=== PATIENT | female | born 1950 | race Caucasian/White ===

== ENCOUNTER → 2020-03-18 09:29 | Outpatient (BNVA) | payer MEDICARE, OTHER, SELFPAY | PROVIDERS: Family Provider Family Medicine; PCP Family Medicine; Visit Provider Family Medicine | DX: D69.9 Hemorrhagic condition, unspecified (principal); Z79.01 Long term (current) use of anticoagulants | CPT/HCPCS: 85610 ==

== ENCOUNTER → 2020-04-16 13:50 | Outpatient (BNVA) | payer MEDICARE, OTHER, SELFPAY | PROVIDERS: Family Provider Family Medicine; PCP Family Medicine; Visit Provider Nurse Practitioner Family | DX: R53.83 Other fatigue (principal); Z86.39 Personal history of other endocrine, nutritional and metabolic disease; E87.1 Hypo-osmolality and hyponatremia; G25.81 Restless legs syndrome | CPT/HCPCS: 80053; 85025 ==

== ENCOUNTER → 2020-05-28 09:47 | Outpatient (BNVA) | payer MEDICARE, OTHER, SELFPAY | PROVIDERS: Family Provider Family Medicine; PCP Family Medicine; Visit Provider Nurse Practitioner Family | DX: G45.9 Transient cerebral ischemic attack, unspecified (principal); R53.83 Other fatigue; E87.1 Hypo-osmolality and hyponatremia | CPT/HCPCS: 80053; 80061; 85025 ==

== ENCOUNTER → 2020-09-22 09:00 | Outpatient (BNVA) | payer MEDICARE, OTHER, SELFPAY | PROVIDERS: Family Provider Family Medicine; PCP Family Medicine; Visit Provider Family Medicine | DX: N18.30 Chronic kidney disease, stage 3 unspecified (principal); R31.29 Other microscopic hematuria | CPT/HCPCS: 80048; 81003; 82310; 83970; 84100; 84550 ==

== ENCOUNTER 2021-08-11 08:33 | Outpatient (CLI) | payer MEDICARE, SELFPAY ==
[2021-08-11 09:03] VITALS: BMI 24.7
--- NOTE | 2021-08-11 09:04 | ECG_ITS ---
[facility] Test Date: 2021-08-11 Pat Name: Roberta Simmons Department: Room: Gender: Female [employer]: : 1950 Requested By: Dennis Peterson Order Number: [id number] Gillian MD: Dennis Peterson M.D. Interpretive Statements NAME OF STUDY: EXERCISE SESTAMIBI STRESS TEST INDICATION: Sp/sob, PROCEDURE: The baseline electrocardiogram showed normal sinus rhythm with normal ST-Ts. At the baseline, the patient's blood pressure was 131/69 mm Hg with a heart rate of 75. The patient exercised for 6 minutes and 45 seconds on a standard [facility] protocol. Patient attained a maximum heart rate of 141 beats per minute 95% of the maximum predicted heart rate) with a blood pressure at the peak exercise of 184/89 mm Hg. The EKG at the peak exercise revealed some nonspecific ST-T changes.. Patient did not have any chest pain or any significant arrhythmis with the exercise Sestamibi was injected 1 minute prior to the peak exercise During the recovery phase, there were no new changes. Blood pressure at the end of the recovery phase was 161/78 mm Hg with a heart rate of 90 per minute. CONCLUSION: 1. No significant EKG changes with the treadmill exercise 2. No exercise-induced chest pain or cardiac arrhythmia. Hypertensive response to exercise 3. Fair exercise tolerance, attained a maximum of 10.2 METs 4. Sestamibi/Sestamibi perfusion results pending; see separate report. Electronically Signed On 08-18-2021 8:20:27 CDT by Dennis Peterson M.D. [id number]
--- NOTE | 2021-08-11 09:05 | NMCV_ITS ---
NM ayah perf SPECT r/s* [id number] Roberta Simmons Age: 71 Gender: F : 1950 Exam Date: 08/11/2021 10:03 Ordering Phys: Dennis Peterson MD ([email or web address]) Technologist: TREASURE Lopes Exam Location: [facility] Indications: CHEST PAIN STRESS TEST Please see separate stress test report in [facility] for full findings IMAGE PROTOCOL Rest/Stress 1 Exercise Day Radiopharmaceutical Dose (mCi) Administration Site Administered by Rest: Tc-99m 10.8 IV TREASURE Lopes Sestamibi Stress:Tc-99m 32.5 IV TREASURE Lopes Sestamibi Rest: 11-Aug-2021 60 Discovery 630 Stress: 11-Aug-2021 15 Discovery 630 Radiopharmaceutical was injected at 89 % maximum heart rate. Images obtained in supine and prone position. SPECT RESULTS Technical Quality: Excellent Raw Data Analysis: Normal Image Corrections: No attenuation or motion correction applied Summed Stress Score: 0 Summed Rest Score: 0 Summed Difference Score: 0 PERFUSION FINDINGS Fairly uniform myocardial tracer uptake with no significant perfusion abnormalities FUNCTIONAL RESULTS (calculated via Gated SPECT) Stress Image LV EF (%): 97 Stress EDV (mL):30 TID: 0.58 Stress ESV (mL):1 FUNCTIONAL FINDINGS: Segmental wall motion analysis revealing no gross wall motion abnormalities IMPRESSIONS 1. Unremarkable myocardial perfusion imaging 2. Normal LV ejection fraction-97% possibly an overestimation because of the extremely low end-systolic volume measurement 3. No gross wall motion normalities. 4. Normal LV volume Very low probability for coronary artery disease, based on the above findings Dr Dennis Peterson MD FACC (Electronically Signed) Final Date: 11 August 2021 23:42 S
[2021-08-11 11:45] VITALS: BP 164/78; PULSE 91
--- NOTE | 2021-08-11 13:30 | USCV_ITS ---
Roberta Simmons Age: 71 Gender: F : 1950 Exam Date: 08/11/2021 12:33 Ordering Phys: Dennis Peterson MD ([email or web address]) Technologist: Stefany Ferreira Exam Location: [facility] [place] Indication: DYSNEA BP: 112 / 70 HR: 69 Rhythm: Sinus Technical Quality: Adequate MEASUREMENTS (Male / Female) Normal Values 2D ECHO LV Diastolic Diameter PLAX 4.3 cm 4.2 - 5.9 / 3.9 - 5.3 cm LV Systolic Diameter PLAX 2.7 cm IVS Diastolic Thickness 1.0 cm 0.6 - 1.0 / 0.6 - 0.9 cm IVS Systolic Thickness 1.7 cm LVPW Diastolic Thickness 1.1 cm 0.6 - 1.0 / 0.6 - 0.9 cm LVPW Systolic Thickness 1.7 cm LVOT Diameter 2.0 cm LV Ejection Fraction 2D Teich 68.0 % LV Ejection Fraction MOD 2C 78.9 % LV Ejection Fraction 2C AL 78.6 % LA Diameter 1.7 cm LA Width 2.4 cm LA Height 3.5 cm RA Width 3.1 cm RA Height 3.1 cm Aorta at Sinotubular Diameter 2.0 cm DOPPLER AV Peak Velocity 107.0 cm/s LVOT Peak Velocity 107.0 cm/s AV Area Cont Eq vti 3.3 cm squared AV Area Cont Eq pk 3.1 cm squared MV Peak Velocity 88.0 cm/s MV Area PHT 3.3 cm squared Mitral E to A Ratio 0.7 MV E' Velocity 35.5 cm/s Mitral E to MV E' Ratio 9.6 Mitral E to LV E' Lateral Ratio 10.5 Mitral E to LV E' Septal Ratio 8.8 TR Peak Velocity 187.9 cm/s TR Peak Gradient 14.1 mmHg TR Mean Velocity 152.2 cm/s TR Mean Gradient 9.9 mmHg TR Velocity Time Integral 40.0 cm TV Peak E Velocity 38.0 cm/s Right Atrial Pressure 3.0 mmHg Pulmonary Artery Systolic Pressu 17.1 mmHg PV Peak Velocity 68.0 cm/s RV Acceleration Time 0.1 s RV Ejection Time 0.3 s RV AcT/ET 0.4 FINDINGS Left Ventricle Normal left ventricular size and systolic function, EF 72 %. No regional wall motion abnormalities. Grade I/IV diastolic dysfunction (abnormal relaxation filling pattern), normal to mildly elevated filling pressures. Right Ventricle The right ventricle is normal in size and function. Right Atrium The right atrium is normal in size. Left Atrium The left atrium is normal in size. Mitral Valve No gross abnormalities noted Aortic Valve Thickened aortic valve. Tricuspid Valve Trace tricuspid valve regurgitation. Pulmonic Valve No gross abnormalities noted Pericardium Normal pericardium without effusion. Aorta Normal ascending aorta dimension. CONCLUSIONS Normal left ventricular size and systolic function, EF 72 %. No regional wall motion abnormalities. Grade I/IV diastolic dysfunction (abnormal relaxation filling pattern), normal to mildly elevated filling pressures. Thickened aortic valve. Trace of tricuspid valve regurgitation. There is no pericardial effusion. There are no intracardiac masses. No previous study is available for comparison. Dr Dennis Peterson MD FACC (Electronically Signed) Final Date: 12 August 2021 00:08 S
== END 2021-08-11 08:34 | disposition home or self-care (01) ==
LOC: CDL 08:40
PROVIDERS: PCP Family Medicine; Visit Provider Internal Medicine Cardiovascular Disease
DX: I08.2 Rheumatic disorders of both aortic and tricuspid valves (principal); R07.9 Chest pain, unspecified; R06.00 Dyspnea, unspecified
CPT/HCPCS: 78452; 93017; 93306; A9500

== ENCOUNTER → 2021-08-17 15:11 | Outpatient (BNVA) | payer MEDICARE, SELFPAY | PROVIDERS: PCP Family Medicine; Visit Provider Nurse Practitioner Family | DX: G45.9 Transient cerebral ischemic attack, unspecified (principal); D69.9 Hemorrhagic condition, unspecified; Z79.01 Long term (current) use of anticoagulants | CPT/HCPCS: 85610 ==

== ENCOUNTER → 2021-10-18 14:58 | Outpatient (BNVA) | payer MEDICARE, SELFPAY | PROVIDERS: PCP Family Medicine; Visit Provider Nurse Practitioner Family | DX: Z79.01 Long term (current) use of anticoagulants (principal) | CPT/HCPCS: 82784; 83516; 85610 ==

== ENCOUNTER → 2021-10-24 09:03 | Outpatient (BNVA) | payer MEDICARE, SELFPAY | PROVIDERS: PCP Family Medicine; Visit Provider Family Medicine | DX: N18.31 Chronic kidney disease, stage 3a (principal); E78.5 Hyperlipidemia, unspecified; Z79.01 Long term (current) use of anticoagulants | CPT/HCPCS: 80053; 80061; 81003; 82306; 82310; 83970; 84100; 84550; 85610 ==

== ENCOUNTER → 2021-11-07 08:53 | Outpatient (BNVA) | payer BC, SELFPAY | PROVIDERS: PCP Family Medicine; Visit Provider Nurse Practitioner Family | DX: R19.7 Diarrhea, unspecified (principal); Z83.79 Family history of other diseases of the digestive system | CPT/HCPCS: 82784; 83516 ==

== ENCOUNTER → 2022-02-01 10:43 | Outpatient (BNVA) | payer BC, SELFPAY | PROVIDERS: PCP Family Medicine; Visit Provider Nurse Practitioner Family | DX: J06.9 Acute upper respiratory infection, unspecified (principal); Z79.01 Long term (current) use of anticoagulants; Z68.25 Body mass index [BMI] 25.0-25.9, adult | CPT/HCPCS: 85610 ==

== ENCOUNTER → 2022-02-21 11:02 | Outpatient (BNVA) | payer BC, SELFPAY | PROVIDERS: PCP Family Medicine; Visit Provider Nurse Practitioner Family | DX: G45.9 Transient cerebral ischemic attack, unspecified (principal) | CPT/HCPCS: 85610 ==

== ENCOUNTER → 2022-05-23 11:47 | Outpatient (BNVA) | payer BC, SELFPAY | PROVIDERS: PCP Family Medicine; Visit Provider Nurse Practitioner Family | DX: Z79.01 Long term (current) use of anticoagulants (principal); Z86.39 Personal history of other endocrine, nutritional and metabolic disease | CPT/HCPCS: 80053; 85610 ==

== ENCOUNTER → 2022-06-20 09:18 | Outpatient (BNVA) | payer BC, SELFPAY | PROVIDERS: PCP Family Medicine; Visit Provider Nurse Practitioner Family | DX: E78.5 Hyperlipidemia, unspecified (principal); Z79.01 Long term (current) use of anticoagulants | CPT/HCPCS: 80053; 80061; 84443; 85610 ==

== ENCOUNTER → 2022-06-27 09:30 | Outpatient (BNVA) | payer BC, SELFPAY | PROVIDERS: PCP Family Medicine; Visit Provider Family Medicine | DX: R30.0 Dysuria (principal); N39.0 Urinary tract infection, site not specified | CPT/HCPCS: 81003 ==

== ENCOUNTER → 2022-09-27 09:10 | Outpatient (BNVA) | payer MEDICARE, SELFPAY | PROVIDERS: PCP Family Medicine; Visit Provider Nurse Practitioner Family | DX: I48.91 Unspecified atrial fibrillation (principal); M19.90 Unspecified osteoarthritis, unspecified site; Z68.25 Body mass index [BMI] 25.0-25.9, adult | CPT/HCPCS: 85610 ==

== ENCOUNTER → 2022-10-31 16:05 | Outpatient (BNVA) | payer MEDICARE, SELFPAY | PROVIDERS: PCP Family Medicine; Visit Provider Internal Medicine | DX: N02.9 Recurrent and persistent hematuria with unspecified morphologic changes (principal); N18.31 Chronic kidney disease, stage 3a; G45.9 Transient cerebral ischemic attack, unspecified; E78.5 Hyperlipidemia, unspecified | CPT/HCPCS: 80053; 80061; 82310; 83970; 85610 ==

== ENCOUNTER → 2023-03-07 11:45 | Outpatient (BNVA) | payer MEDICARE, SELFPAY | PROVIDERS: PCP Family Medicine; Visit Provider Internal Medicine | DX: N18.31 Chronic kidney disease, stage 3a (principal) | CPT/HCPCS: 80048; 81000 ==

== ENCOUNTER → 2023-04-27 16:11 | Outpatient (BNVA) | payer MEDICARE, SELFPAY | PROVIDERS: PCP Family Medicine; Visit Provider Family Medicine | DX: S20.369A Insect bite (nonvenomous) of unspecified front wall of thorax, initial encounter (principal); W57.XXXA Bitten or stung by nonvenomous insect and other nonvenomous arthropods, initial encounter; I48.91 Unspecified atrial fibrillation | CPT/HCPCS: 85610; 86618; 86666; 86757 ==

== ENCOUNTER → 2023-06-11 16:15 | Outpatient (BNVA) | payer MEDICARE, SELFPAY | PROVIDERS: PCP Family Medicine; Visit Provider Nurse Practitioner Family | DX: R06.02 Shortness of breath (principal); R05.3 Chronic cough | CPT/HCPCS: 71046 ==

== ENCOUNTER → 2023-10-18 08:37 | Outpatient (BNVA) | payer MEDICARE, SELFPAY | PROVIDERS: PCP Family Medicine; Visit Provider Family Medicine | DX: D68.51 Activated protein C resistance (principal) | CPT/HCPCS: 85610 ==

== ENCOUNTER → 2023-11-08 08:52 | Outpatient (BNVA) | payer MEDICARE, SELFPAY | PROVIDERS: PCP Family Medicine; Visit Provider Nurse Practitioner Family | DX: N18.31 Chronic kidney disease, stage 3a (principal) | CPT/HCPCS: 80053; 80061; 81003; 84100; 84443; 84550; 85025; 85610 ==

== ENCOUNTER → 2024-02-22 09:40 | Outpatient (BNVA) | payer MEDICARE, SELFPAY | PROVIDERS: PCP Family Medicine; Visit Provider Nurse Practitioner Family | DX: E23.2 Diabetes insipidus (principal); R19.7 Diarrhea, unspecified; D68.51 Activated protein C resistance | CPT/HCPCS: 80048; 80053; 80061; 81003; 84100; 84443; 84550; 85025; 85610 ==

== ENCOUNTER → 2024-05-19 08:22 | Outpatient (BNVA) | payer MEDICARE, SELFPAY | PROVIDERS: PCP Family Medicine; Referring Provider Internal Medicine; Visit Provider Nurse Practitioner Family | DX: N02 Recurrent and persistent hematuria (principal); E87.20 Acidosis, unspecified | CPT/HCPCS: 80048; 81003; 82310; 83970; 84100; 84550 ==

== ENCOUNTER → 2024-12-03 09:35 | Outpatient (BNVA) | payer MEDICARE, SELFPAY | PROVIDERS: PCP Nurse Practitioner Family; Visit Provider Nurse Practitioner Family | DX: Z79.899 Other long term (current) drug therapy (principal); N18.31 Chronic kidney disease, stage 3a; N02.9 Recurrent and persistent hematuria with unspecified morphologic changes; D68.51 Activated protein C resistance | CPT/HCPCS: 80048; 82040; 82043; 82306; 82310; 83036; 83735; 83970; 84100; 84550; 85610 ==

== ENCOUNTER → 2025-05-21 08:21 | Outpatient (BNVA) | payer MEDICARE, SELFPAY | PROVIDERS: PCP Nurse Practitioner Family; Visit Provider Nurse Practitioner Family | DX: F45.21 Hypochondriasis (principal); E55.9 Vitamin D deficiency, unspecified; R89.8 Other abnormal findings in specimens from other organs, systems and tissues; E78.6 Lipoprotein deficiency; Z79.01 Long term (current) use of anticoagulants | CPT/HCPCS: 80053; 80061; 82306; 85007; 85027; 85610 ==

== ENCOUNTER → 2025-05-22 17:09 | Outpatient (BNVA) | payer MEDICARE, SELFPAY | PROVIDERS: PCP Nurse Practitioner Family; Visit Provider Nurse Practitioner Family | DX: R89.8 Other abnormal findings in specimens from other organs, systems and tissues (principal) | CPT/HCPCS: 80503 ==

== ENCOUNTER → 2025-07-08 11:11 | Outpatient (BNVA) | payer MEDICARE, SELFPAY | PROVIDERS: PCP Nurse Practitioner Family; Visit Provider Nurse Practitioner Family | DX: D68.51 Activated protein C resistance (principal); R93.1 Abnormal findings on diagnostic imaging of heart and coronary circulation; Z86.39 Personal history of other endocrine, nutritional and metabolic disease; J82.83 Eosinophilic asthma | CPT/HCPCS: 80053; 85007; 85027; 85610 ==

== ENCOUNTER → 2025-09-11 09:55 | Outpatient (BNVA) | payer MEDICARE, SELFPAY | PROVIDERS: PCP Nurse Practitioner Family; Referring Provider Nurse Practitioner Family; Visit Provider Internal Medicine | DX: D68.51 Activated protein C resistance (principal); J82.83 Eosinophilic asthma; R93.89 Abnormal findings on diagnostic imaging of other specified body structures; K21.9 Gastro-esophageal reflux disease without esophagitis; Z87.891 Personal history of nicotine dependence; J44.9 Chronic obstructive pulmonary disease, unspecified; T78.40XA Allergy, unspecified, initial encounter; X58.XXXA Exposure to other specified factors, initial encounter | CPT/HCPCS: 36415; 82103; 86003; 99204; Q3014 ==

== ENCOUNTER 2025-09-16 11:35 | Outpatient (CLI) | payer MEDICARE, SELFPAY ==
[2025-09-16 12:18] VITALS: PULSE 74; RESP 18; O2SAT 99
== END 2025-09-16 11:36 | disposition home or self-care (01) ==
LOC: RT 11:40
PROVIDERS: PCP Nurse Practitioner Family; Visit Provider Internal Medicine
DX: J44.9 Chronic obstructive pulmonary disease, unspecified (principal)
CPT/HCPCS: 94060; 94726; 94729; J7613